=== PATIENT | female | born 1990 | race Caucasian/White ===

== ENCOUNTER 2019-08-29 16:49 | Outpatient (REF) | payer MEDICAID, SELFPAY ==
--- NOTE | 2019-08-29 15:20 | PAPFT_PTH ---
PATIENT: Марина Strickland LOC: [facility] U#:[id number] AGE/SX: 29/F ROOM: RE08/29/[address]: Rajwinder Covington, PhD [employer] : 1990 BED: DIS: 08/29/2019 SPEC #: [id number] RECD: 08/29/19 18:44 STATUS: KENRICK REQ #: [id number] LILIYA: 08/29/19 15:[address]: Rajwinder Covington DEPT: [facility] Cytology RECD BY: Therese Byers Tissues: 1 - CX/ENDOCX FOR PAP SMEARS Procedures: PAP THIN PREP/[facility] Screening HPV DNA PROBE Comments: [id number]
== END 2019-08-29 17:09 ==
LOC: LBN 16:49
PROVIDERS: PCP Nurse Practitioner; Visit Provider Nurse Practitioner
DX: Z12.4 Encounter for screening for malignant neoplasm of cervix (principal)
CPT/HCPCS: 88142; 87624

== ENCOUNTER 2021-10-25 15:01 | Outpatient (REF) | payer MEDICAID, SELFPAY ==
[2021-10-27 09:55] LABS: Hepatitis C Ab w Rflx HCV PCR Negative (Negative)
[2021-10-27 10:18] LABS: HIV-1/2 Ag & Ab Screen Negative (Negative)
== END 2021-10-25 15:02 | disposition home or self-care (01) ==
LOC: LBN 15:01
PROVIDERS: PCP Nurse Practitioner; Visit Provider Nurse Practitioner Family
DX: Z11.4 Encounter for screening for human immunodeficiency virus [HIV] (principal); Z11.59 Encounter for screening for other viral diseases
CPT/HCPCS: 86803; 87389